=== PATIENT | female | born 1965 | race Caucasian/White ===

== ENCOUNTER 2018-07-09 23:10 | Emergency (ER) | payer BC, SELFPAY ==
[2018-07-09 23:12] VITALS: BP 139/82; PULSE 86; RESP 18; TEMP 36.8; O2SAT 98; BMI 31.4
--- NOTE | 2018-07-09 23:30 | ED.DCSUM_ITS ---
- ER Visit Summary Date of Service: 07/09/18 Chief Complaint: Right small finger laceration History of Present Illness: The patient is a 53 F laceration right small finger on car door 1 hour prior to arrival. Takes baby aspirin, tetanus more than 10 years. Bleeding transiently controlled. No paresthesias. Physical Examination: General: Alert and oriented ?3, no acute distress HEENT: Normocephalic, atraumatic. Moist mucosa membranes Neck: supple, nontender. Cardiovascular: Regular rate and rhythm, no murmurs Respiratory: Normal breath sounds, symmetric, no distress Abdomen: Soft, nontender, nondistended Extremities: Nontender, no edema, pulses intact ?4. Right hand fifth digit: Full range of motion. Skin examination total length of 3 cm ulnar aspect of the finger across the site of PIP joint. Subcu exposure proximally less than 2 cm in the middle. Mild bleeding, controlled with pressure. Cap refill intact. Neuro: no focal neurological deficits. Test Results: [] Emergency Department Course and Treatment: Superficial laceration however does extend to subcu middle aspect of the finger with mild bleeding. Tetanus updated. Total 4, 5-0 nylon sutures were placed after turnicot. [place] removed. Wound care discussed. AlumaFoam splint placed to help with wound healing. Follow-up in 10-14 days for suture removal. All questions were answered. Treatment Plan: [] Disposition: Discharge Impression: 1. Right fifth finger laceration status post repair 2. Tetanus update This note was generated with [employer] dictation software. It may contain incorrect words, spelling, and punctuation that were not noted in review of the chart prior to signing ED Disposition - Plan for ED Patient: Disposition: Home or Assisted Living Diagnosis: Right fifth digit laceration, Tetanus toxoid vaccination administered at current visit Instructions: ED Laceration Hand Referrals: NOT,DEFINED [Primary Care Provider] - 10-14 Days suture removal
[2018-07-09] MEDS: Diphth,Pertuss(Acell),Tet Vac 0.5 ML Vial IM (23:47)
[2018-07-10] MEDS: BACITRACIN 15 GM Tube 1 APPLIC TOPICAL (00:14)
[2018-07-10 00:25] VITALS: BP 135/80; PULSE 88; RESP 18; O2SAT 98
== END 2018-07-10 00:23 | disposition home or self-care (01) ==
LOC: ED 07-10 00:14
PROVIDERS: Emergency Provider Emergency Medicine; Family Provider Family Medicine; PCP Family Medicine
DX: S61.216A Laceration without foreign body of right little finger without damage to nail, initial encounter (principal); Z23 Encounter for immunization; I10 Essential (primary) hypertension; W26.8XXA Contact with other sharp object(s), not elsewhere classified, initial encounter; Y93.89 Activity, other specified; Y92.89 Other specified places as the place of occurrence of the external cause; Y99.8 Other external cause status
CPT/HCPCS: 12001; 90471; 90715; 99284